=== PATIENT | female | born 1955 | race Caucasian/White ===

== ENCOUNTER 2018-06-23 07:47 | Outpatient (CLI) | payer BC | END 2018-06-23 07:48 | disposition home or self-care (01) | LOC: CONVCARE 07:47 | PROVIDERS: ATTEND Orthopaedic Surgery | DX: S42.201D Unspecified fracture of upper end of right humerus, subsequent encounter for fracture with routine healing (principal) | CPT/HCPCS: 73030 ==

== ENCOUNTER 2018-07-28 10:04 | Outpatient (CLI) | payer BC | END 2018-07-28 10:05 | disposition home or self-care (01) | LOC: CONVCARE 10:04 | PROVIDERS: ATTEND Orthopaedic Surgery | DX: S42.201D Unspecified fracture of upper end of right humerus, subsequent encounter for fracture with routine healing (principal) | CPT/HCPCS: 73030 ==

== ENCOUNTER 2018-09-22 13:20 | Outpatient (CLI) | payer BC | END 2018-09-22 13:21 | disposition home or self-care (01) | LOC: CONVCARE 13:20 | PROVIDERS: ATTEND Orthopaedic Surgery | DX: S42.201D Unspecified fracture of upper end of right humerus, subsequent encounter for fracture with routine healing (principal) | CPT/HCPCS: 73030 ==